=== PATIENT | male | born 1950 | race Asian ===

== ENCOUNTER → 2024-04-23 | Outpatient (CLI) | payer BC ==
[2024-04-23 17:09] LABS: BASOPHILS % 0.7 % (0.0-2.0); EOSINOPHILS % 3.1 % (0.0-5.0); HEMATOCRIT. 44.1 % (42.0-52.0); HEMOGLOBIN. 14.6 g/dL (14.0-18.0); LYMPHOCYTES % 20.7 % (20.0-50.0); MEAN CORPUSCULAR HEMOGLOBIN 30.8 pg (28.0-32.0); MEAN CORPUSCULAR VOLUME 93.1 fL (80.0-94.0); MONOCYTES % 8.5 % (2.0-8.0); PLATELET 213 x1000/uL (130-400); RED BLOOD CELL COUNT 4.74 mill/uL (4.7-6.1); RED CELL DISTRIBUTION WIDTH 13.7 % (11.6-14.6); WHITE BLOOD COUNT 7.6 x1000/uL (4.5-11.0)
[2024-04-23 17:17] LABS: CHLORIDE 105 mEq/L (98-107); POTASSIUM 4.5 mEq/L (3.5-5.1); SODIUM 139 mEq/L (136-145)
[2024-04-23 17:18] LABS: CARBON DIOXIDE 25 mEq/L (21-32)
[2024-04-23 17:19] LABS: CALCIUM 10.4 mg/dL (8.7-10.4)
[2024-04-23 17:23] LABS: CREATININE 1.2 mg/dL (0.6-1.3); GLUCOSE 124 mg/dL (70-105); TRIGLYCERIDE 86 mg/dL (0-150)
[2024-04-23 17:24] LABS: LDL CHOLESTEROL 59 mg/dL (5-100); UREA NITROGEN BLOOD 18 mg/dL (9-23)
[2024-04-23 17:25] LABS: ALANINE AMINOTRANSFERASE 18 IU/L (10-49); ASPARTATE AMINOTRANSFERASE 17 IU/L (<34); CHOLESTEROL 117 mg/dL (<200); HDL CHOLESTEROL 43 mg/dL (>55)
[2024-04-23 17:26] LABS: BILIRUBIN TOTAL 0.7 mg/dL (0.1-1.0); PROTEIN TOTAL 7.9 g/dL (6.0-8.3)
[2024-04-23 17:28] LABS: THYROID STIMULATING HORMONE 1.91 uIU/mL (0.55-4.78)
== END | disposition home or self-care (01) ==
LOC: LAB 15:53
PROVIDERS: ATTEND Internal Medicine Critical Care Medicine
DX: Z00.01 Encounter for general adult medical examination with abnormal findings (principal)
CPT/HCPCS: 36415; 80053; 80061; 83036; 84153; 84439; 84443; 84480; 85025

== ENCOUNTER → 2024-07-03 | Outpatient (CLI) | payer BC ==
[2024-07-03 09:24] LABS: BASOPHILS % 0.7 % (0.0-2.0); EOSINOPHILS % 2.7 % (0.0-5.0); HEMATOCRIT. 43.1 % (42.0-52.0); HEMOGLOBIN. 14.2 g/dL (14.0-18.0); LYMPHOCYTES % 16.5 % (20.0-50.0); MEAN CORPUSCULAR HEMOGLOBIN 30.1 pg (28.0-32.0); MEAN CORPUSCULAR HGB CONC 33.1 g/dL (31.0-37.0); MEAN CORPUSCULAR VOLUME 91.2 fL (80.0-94.0); MEAN PLATELET VOLUME 7.4 fl (7.4-10.4); MONOCYTES % 8.3 % (2.0-8.0); NEUTROPHILS % 71.8 % (40.0-76.0); PLATELET 219 x1000/uL (130-400); RED BLOOD CELL COUNT 4.73 mill/uL (4.7-6.1); RED CELL DISTRIBUTION WIDTH 13.6 % (11.6-14.6); WHITE BLOOD COUNT 7.4 x1000/uL (4.5-11.0)
[2024-07-03 09:49] LABS: CHLORIDE 101 mEq/L (98-107); POTASSIUM 4.8 mEq/L (3.5-5.1); SODIUM 139 mEq/L (136-145)
[2024-07-03 09:50] LABS: CARBON DIOXIDE 30 mEq/L (21-32)
[2024-07-03 09:55] LABS: TRIGLYCERIDE 88 mg/dL (0-150); UREA NITROGEN BLOOD 16 mg/dL (9-23)
[2024-07-03 09:56] LABS: LDL CHOLESTEROL 59 mg/dL (5-100)
[2024-07-03 10:03] LABS: ERYTHROCYTE SEDIMENTATION RATE 8 mm/hr (0-20)
[2024-07-03 11:29] LABS: FOLIC ACID (FOLATE) SERUM > 20.00 ng/mL (>5.38)
[2024-07-03 11:33] LABS: CALCIUM 10.5 mg/dL (8.7-10.4)
[2024-07-03 11:38] LABS: GLUCOSE 115 mg/dL (70-105)
[2024-07-03 11:39] LABS: ALANINE AMINOTRANSFERASE 23 IU/L (10-49)
[2024-07-03 11:40] LABS: ALBUMIN 4.6 g/dL (3.2-4.8); ASPARTATE AMINOTRANSFERASE 18 IU/L (<34); BILIRUBIN TOTAL 0.6 mg/dL (0.1-1.0); CHOLESTEROL 119 mg/dL (<200); HDL CHOLESTEROL 43 mg/dL (>55)
[2024-07-03 11:41] LABS: PROTEIN TOTAL 7.9 g/dL (6.0-8.3)
[2024-07-04 09:10] LABS: VITAMIN D 25-OH 25.7 ng/mL (30.0-100.0)
[2024-07-04 17:07] LABS: ANTI-NUCLEAR ANTIBODIES DIRECT Negative (Negative)
[2024-07-07 04:11] LABS: METHYLMALONIC ACID 181 nmol/L (0-378)
== END | disposition home or self-care (01) ==
LOC: LAB 08:54
PROVIDERS: ATTEND Internal Medicine Endocrinology, Diabetes & Metabolism
DX: M51.17 Intervertebral disc disorders with radiculopathy, lumbosacral region (principal); M41.86 Other forms of scoliosis, lumbar region; R05.9 Cough, unspecified; I10 Essential (primary) hypertension; E11.9 Type 2 diabetes mellitus without complications; E55.9 Vitamin D deficiency, unspecified
CPT/HCPCS: 36415; 71045; 72110; 80053; 80061; 82306; 82746; 83036; 83921; 85025; 85651; 86038; 86430